=== PATIENT | male | born 1950 | race Caucasian/White ===

== ENCOUNTER → 2018-04-19 14:00 | Outpatient (CLI) | payer OTHER, SELFPAY ==
--- NOTE | 2018-04-19 | DI.ECHO.S_ITS ---
[facility] +---------+ : : [address] : [place] [place] : : : : [id number] : : : : Phone: [phone]+ Echocardiogram Report + + :Name: MUNDO SUAREZ Study Date: 04/19/2018 Height: 68 in : :[facility] Weight: 236 lb : : Gender: Male BSA: 2.2 m2 : :: 1950 Age: 67 yrs BP: 124/64 mmHg: :Reason For Study: Dyspnea : : Performed By: Vida Olsen : :Referring: MANOJ DRAPER : + + Interpretation Summary Technically difficult study limiting valve visualization. 1) Normal left ventricular size, thickness, wall motion, and systolic function (EF 60-65%). 2) Grossly, mildly enlarged right ventricle with low normal function. 3) The left atrium is severely dilated. 4) No significant valvular abnormalities by doppler assessment 5) Right ventricular systolic pressure is estimated to be 33.6 mmHg plus the clinically estimated CVP which cannot be estimated on this exam. 6) No prior Echo available for comparison. Procedure: A two-dimensional transthoracic echocardiogram with color flow and Doppler was performed. The study quality was technically difficult. There is no prior echocardiogram noted for this patient. 1.5 ml of Definity contrast was used to improve the image quality. The heart rate ranged between 61-70 bpm during the study. Left Ventricle: The left ventricle is normal in size, wall thickness, and systolic function without any focal wall motion abnormalities. The ejection fraction is estimated to be 60-65%. Right Ventricle: The right ventricle is not well visualized. Grossly, mildly enlarged right ventricle with low normal function. Atria: The left atrium is severely dilated. Right atrial size is normal. Mitral Valve: The mitral valve is grossly normal. There is no mitral regurgitation noted. Aortic Valve: The aortic valve opens well. The aortic valve is slightly calcified. No aortic regurgitation is present. Tricuspid Valve: The tricuspid valve leaflets are thin and pliable. There is mild tricuspid regurgitation. Right ventricular systolic pressure is estimated to be 33.6 mmHg plus the clinically estimated CVP which cannot be estimated on this exam. Pulmonic Valve: The pulmonic valve is not well seen, but is grossly normal. There is trace pulmonic regurgitation. Great Vessels: The aortic root is normal size. The dimensions of the ascending aorta are normal. The aortic arch is normal in size. The inferior vena cava was not visualized. Pericardium/ Pleura There is no pericardial effusion. There is no pleural effusion. MMode/2D Measurements & Calculations LVIDd: 5.4 cm Ao root diam: 3.3 cm LVIDs: 3.1 cm Aortic Jxn: 2.7 cm FS: 43.3 % asc Aorta Diam: 3.4 cm EPSS: 0.76 cm Ao Arch Diam (Prox Trans): 3.1 cm IVSd: 1.0 cm LVPWd: 0.86 cm LV faustin. diameter/BSA (cm/m^2): 2.5 LV sys. diameter/BSA (cm/m^2): 1.4 LA dimension: 5.3 cm RA long axis: 5.7 cm LA A2 area: 28.1 cm2 RA area: 21.3 cm2 LA A4 area: 31.8 cm2 RA vol: 67.3 ml LA length (vol): 6.3 cm RA : 30.7 ml/m2 LA vol: 120.1 ml LA vol index: 54.8 ml/m2 Doppler Measurements & Calculations Ao V2 max: 178.3 cm/sec MV E max huey: 114.9 cm/sec Ao V2 mean: 122.2 cm/sec MV A max huey: 28.5 cm/sec Ao max P.7 mmHg MV E/A: 4.0 Ao mean P.7 mmHg Med Peak E' Huey: 10.2 cm/sec Ao V2 VTI: 36.6 cm E/E' med: 11.3 MV dec time: 0.22 sec MV P1/2t: 63.0 msec TR max huey: 290.0 cm/sec MV P1/2t max huey: 115.2 cm/sec TR max P.6 mmHg MVA(P1/2t): 3.5 cm2 PA V2 max: 97.9 cm/sec PA V2 mean: 62.2 cm/sec PA mean P.9 mmHg PA Accel Time: 0.13 sec Reading Physician:05:09 PM
== END ==
PROVIDERS: Family Provider Internal Medicine; PCP Internal Medicine; Visit Provider Physician Assistant
DX: I07.1 Rheumatic tricuspid insufficiency (principal); R06.00 Dyspnea, unspecified; R05 Cough; R06.9 Unspecified abnormalities of breathing
CPT/HCPCS: 93306; Q9957